=== PATIENT | male | born 1980 | race Two or more races ===

== ENCOUNTER 2018-09-09 08:28 | Emergency (ER) | payer OTHER ==
[~2018-09-09] VITALS: Ht 160 cm; Wt 90.7 kg
[2018-09-09 08:36] VITALS: BP 141/83
[2018-09-09] MEDS ORDERED: KETOROLAC TROMETH 60MG/2ML VIAL IM ONE (09:15)
== END 2018-09-09 10:23 | disposition home or self-care (01) ==
LOC: ER 08:32
DX: M94.0 Chondrocostal junction syndrome [Tietze] (principal); S63.642A Sprain of metacarpophalangeal joint of left thumb, initial encounter; F41.1 Generalized anxiety disorder; F17.210 Nicotine dependence, cigarettes, uncomplicated; F12.10 Cannabis abuse, uncomplicated; X50.0XXA Overexertion from strenuous movement or load, initial encounter; Y93.89 Activity, other specified; Y92.89 Other specified places as the place of occurrence of the external cause; Y99.8 Other external cause status
CPT/HCPCS: 71111; 93005; 96372; 99283; J1885